=== PATIENT | female | born 1990 | race Caucasian/White ===

== ENCOUNTER 2021-02-23 07:57 | Outpatient (REF) | payer OTHER, SELFPAY ==
[2021-02-23 14:37] LABS: CT PCR NOT DETECTED (Not Detect.)
[2021-02-23 14:38] LABS: NG PCR NOT DETECTED (Not Detect.)
[2021-02-24 09:18] LABS: BV Int Neg Control Negative (Negative); BV Int Pos Control Positive (Positive)
== END 2021-02-23 07:58 | disposition home or self-care (01) ==
LOC: HO.LAB 07:57
PROVIDERS: PCP Internal Medicine; Visit Provider Advanced Practice Midwife
DX: R30.0 Dysuria (principal)
CPT/HCPCS: 87480; 87491; 87510; 87591; 87660

== ENCOUNTER 2021-03-08 14:56 | Outpatient (REF) | payer OTHER, SELFPAY ==
--- NOTE | ~2021-03-08 | US_ITS ---
EXAMINATION: ULTRASOUND PELVIS AND TRANSVAGINAL. CLINICAL INFORMATION: Abnormal uterine and vaginal bleeding. COMPARISON: Ultrasound pelvis 04/24/2019. TECHNIQUE: Transabdominal and transvaginal imaging of pelvis was performed. FINDINGS: On transabdominal ultrasound the uterus is anteverted reported and anteflexed measuring 8.6 cm in length, 3.4 cm in AP and 5.3 cm in transverse dimension. Endometrial thickness is 0.80 cm. The uterus is homogeneous in echotexture. The endometrial thickness is 0.9 cm. Previously seen endometrial polyp or focal hyperplasia within fundal endometrial canal is not seen at this time. The right ovary measures 3.5 x 2.0 x 1.8 cm volume 4.01 mL. There are small follicles seen in the ovary. Previously right ovary measured 3.0 x 1.9 x 1.7 cm. The left ovary measures 3.0 x 1.7 x 1.2 cm and volume 1.4 mL. There are small follicles seen in the ovary. Previously it measures 2.8 x 2.1 x 1.9 cm. There is no free fluid in the cul-de-sac. US/US pelvic and transvaginal IMPRESSION: No endometrial polyp or hyperplasia seen at this time. The uterus is unremarkable. There are small ovarian follicles seen in both ovaries.
== END 2021-03-08 14:57 | disposition home or self-care (01) ==
LOC: HO.US 14:56
PROVIDERS: PCP Internal Medicine; Visit Provider Obstetrics & Gynecology
DX: R93.5 Abnormal findings on diagnostic imaging of other abdominal regions, including retroperitoneum (principal); N93.9 Abnormal uterine and vaginal bleeding, unspecified
CPT/HCPCS: 76830; 76856

== ENCOUNTER 2021-03-15 13:58 | Outpatient (REF) | payer OTHER, SELFPAY ==
[2021-03-16 09:25] LABS: CT PCR NOT DETECTED (Not Detect.); NG PCR NOT DETECTED (Not Detect.)
[2021-03-18 01:16] LABS: HPV mRNA E6/E7 rflx Not Detected (Not Detected)
== END 2021-03-15 13:59 | disposition home or self-care (01) ==
LOC: HO.LAB 13:58
PROVIDERS: Visit Provider Obstetrics & Gynecology
DX: Z01.419 Encounter for gynecological examination (general) (routine) without abnormal findings (principal); R93.5 Abnormal findings on diagnostic imaging of other abdominal regions, including retroperitoneum; F17.210 Nicotine dependence, cigarettes, uncomplicated
CPT/HCPCS: 87491; 87591; 87624; 88142

== ENCOUNTER 2021-04-12 14:33 | Outpatient (REF) | payer OTHER, SELFPAY ==
[2021-04-12 16:34] LABS: Syphilis Screen Nonreactive (Nonreactive)
[2021-04-13 01:58] LABS: CT PCR NOT DETECTED (Not Detect.); NG PCR NOT DETECTED (Not Detect.)
[2021-04-13 09:05] LABS: HBsAGNum1 0.22 S/CO (0.00-0.99); HIV AB/AG Nonreactive (Nonreactive); HIV Num 1 0.06 S/CO (0.00-0.99); Hepatitis B Surface Antigen Negative (Negative); ~Hepatitis C Antibody Nonreactive (Nonreactive)
[2021-04-13 09:13] LABS: BV Int Neg Control Negative (Negative); BV Int Pos Control Positive (Positive)
== END 2021-04-12 14:34 | disposition home or self-care (01) ==
LOC: HO.LAB 14:33
PROVIDERS: PCP Internal Medicine; Visit Provider Obstetrics & Gynecology
DX: N76.0 Acute vaginitis (principal); B96.89 Other specified bacterial agents as the cause of diseases classified elsewhere; F17.210 Nicotine dependence, cigarettes, uncomplicated
CPT/HCPCS: 36415; 86780; 86803; 87340; 87389; 87480; 87491; 87510; 87591; 87660

== ENCOUNTER → 2021-06-02 15:05 | Outpatient (BNVA) | payer OTHER, SELFPAY | PROVIDERS: Visit Provider Obstetrics & Gynecology ==

== ENCOUNTER 2021-06-23 11:25 | Outpatient (REF) | payer OTHER, SELFPAY ==
[2021-06-23 16:40] LABS: CT PCR NOT DETECTED (Not Detect.); NG PCR NOT DETECTED (Not Detect.)
== END 2021-06-23 11:26 | disposition home or self-care (01) ==
LOC: HO.LAB 11:25
PROVIDERS: Visit Provider Obstetrics & Gynecology
DX: Z30.430 Encounter for insertion of intrauterine contraceptive device (principal)
CPT/HCPCS: 58300; 81025; 87491; 87591

== ENCOUNTER 2021-07-07 10:59 | Outpatient (REF) | payer OTHER, SELFPAY ==
[2021-07-07 16:09] LABS: CT PCR NOT DETECTED (Not Detect.); NG PCR NOT DETECTED (Not Detect.)
[2021-07-08 11:51] LABS: BV Int Neg Control Negative (Negative); BV Int Pos Control Positive (Positive)
== END 2021-07-07 11:00 | disposition home or self-care (01) ==
LOC: HO.LAB 10:59
PROVIDERS: Visit Provider Obstetrics & Gynecology
DX: N76.0 Acute vaginitis (principal); B96.89 Other specified bacterial agents as the cause of diseases classified elsewhere; F17.210 Nicotine dependence, cigarettes, uncomplicated
CPT/HCPCS: 87480; 87491; 87510; 87591; 87660

== ENCOUNTER → 2021-07-21 15:06 | Outpatient (BNVA) | payer OTHER, SELFPAY | PROVIDERS: Visit Provider Obstetrics & Gynecology ==